=== PATIENT | male | born 1995 | race Caucasian/White ===

== ENCOUNTER 2018-03-19 23:27 | Emergency (ER) | payer SELFPAY ==
[~2018-03-19] VITALS: Ht 187.9 cm; Wt 86.2 kg
[~2018-03-19 23:27] MED LIST: BACTRIM DS 8001 TA1 PO; IBU800 MG PO; KEFLEX500 MG PO; MOTRIN600 MG PO; MOTRIN800 MG PO
[2018-03-19] MEDS ORDERED: AMOXICILLIN500 M2 PO (23:36)
== END 2018-03-19 23:50 | disposition home or self-care (01) ==
LOC: ED 23:27
DX: H66.91 Otitis media, unspecified, right ear (principal)

== ENCOUNTER 2018-09-11 07:04 | Emergency (ER) | payer SELFPAY ==
[~2018-09-11] VITALS: Ht 185.4 cm; Wt 86.2 kg
[~2018-09-11 07:04] MED LIST changes: +AMOXICILLIN500 M2 PO
== END 2018-09-11 08:10 | disposition home or self-care (01) ==
LOC: ED 07:04
DX: H60.92 Unspecified otitis externa, left ear (principal); Z79.2 Long term (current) use of antibiotics

== ENCOUNTER 2019-03-23 20:29 | Emergency (ER) | payer SELFPAY ==
[~2019-03-23] VITALS: Ht 185.4 cm; Wt 83.9 kg
[2019-03-23 20:50] LABS: BILIRUBIN NEGATIVE (NEGATIVE); BLOOD NEGATIVE (NEGATIVE); CLARITY CLEAR (CLEAR); COLOR YELLOW (YELLOW); GLUCOSE NEGATIVE (NEGATIVE); KETONE NEGATIVE (NEGATIVE); LEUKO ESTERASE TRACE (NEGATIVE); NITRITE NEGATIVE (NEGATIVE); UROBILINOGEN 0.2 E.U./dl (0.2-1.0)
[2019-03-23 20:59] LABS: BACTERIA 1+
[2019-03-23] MEDS ORDERED: AMINOPHYLLIN200 MG PO (21:22)
== END 2019-03-23 21:28 | disposition home or self-care (01) ==
LOC: ED 20:29
PROVIDERS: Physician Assistant
DX: N39.0 Urinary tract infection, site not specified (principal); F17.200 Nicotine dependence, unspecified, uncomplicated

== ENCOUNTER 2019-06-05 20:28 | Emergency (ER) | payer SELFPAY ==
[~2019-06-05] VITALS: Ht 185.4 cm; Wt 83.9 kg
[~2019-06-05 20:28] MED LIST changes: +AMINOPHYLLIN200 MG PO
[2019-06-05 20:49] LABS: BILIRUBIN NEGATIVE (NEGATIVE); BLOOD NEGATIVE (NEGATIVE); CLARITY CLEAR (CLEAR); COLOR YELLOW (YELLOW); GLUCOSE NEGATIVE (NEGATIVE); KETONE NEGATIVE (NEGATIVE); LEUKO ESTERASE TRACE (NEGATIVE); NITRITE NEGATIVE (NEGATIVE); SPECIFIC GRAVITY <= 1.005 (1.005-1.030); UROBILINOGEN 0.2 E.U./dl (0.2-1.0)
[2019-06-05] MEDS ORDERED: SEPTDS PO (21:25)
== END 2019-06-05 21:42 | disposition home or self-care (01) ==
LOC: ED 20:28
PROVIDERS: Nurse Practitioner Family
DX: R30.0 Dysuria (principal)

== ENCOUNTER 2019-06-17 13:35 | Emergency (ER) | payer SELFPAY ==
[~2019-06-17] VITALS: Ht 185.4 cm; Wt 83.9 kg
[~2019-06-17 13:35] MED LIST changes: +SEPTDS PO
[2019-06-17 13:53] LABS: BILIRUBIN NEGATIVE (NEGATIVE); BLOOD NEGATIVE (NEGATIVE); CLARITY CLEAR (CLEAR); COLOR YELLOW (YELLOW); GLUCOSE NEGATIVE (NEGATIVE); KETONE NEGATIVE (NEGATIVE); LEUKO ESTERASE NEGATIVE (NEGATIVE); NITRITE NEGATIVE (NEGATIVE); SPECIFIC GRAVITY <= 1.005 (1.005-1.030); UROBILINOGEN 0.2 E.U./dl (0.2-1.0)
[2019-06-17 14:03] LABS: EPITHELIAL CELLS 0-2
[2019-06-19 22:07] LABS: GONOCOCCUS BY NAA Negative (Negative)
== END 2019-06-17 14:21 | disposition home or self-care (01) ==
LOC: ED 13:35
PROVIDERS: Emergency Medicine
DX: R30.0 Dysuria (principal); R30.9 Painful micturition, unspecified; Z20.2 Contact with and (suspected) exposure to infections with a predominantly sexual mode of transmission; Z88.2 Allergy status to sulfonamides; Z88.1 Allergy status to other antibiotic agents

== ENCOUNTER 2019-09-13 17:43 | Emergency (ER) | payer OTHER ==
[~2019-09-13] VITALS: Ht 185.4 cm; Wt 83.9 kg
[2019-09-13 18:28] LABS: BASO % 0.6 % (0.0-1.0); EOS % 0.8 % (1.0-4.0); HEMATOCRIT 42.5 % (42.0-52.0); HEMOGLOBIN 14.1 g/dl (14.0-18.0); LYMPH # 2.1 10*3/uL (1.3-4.4); LYMPH % 41.4 % (27.0-41.0); MEAN CELL VOLUME 87.8 fl (80.0-94.0); MEAN CORPUSCULAR HGB 29.1 pg (27.0-31.0); MEAN CORPUSCULAR HGB CONC 33.2 g/dl (33.0-37.0); MEAN PLATELET VOLUME 9.4 fl (9.6-12.3); MONO # 0.4 10*3/uL (0.1-1.0); MONO % 8.5 % (3.0-9.0); NEUT # 2.4 10*3/uL (2.3-7.9); NEUT % 48.7 % (47.0-73.0); PLATELET COUNT AUTOMATED 226 10*3/uL (130-400); RED BLOOD COUNT 4.84 10*6/uL (4.50-5.90); RED CELL DISTRI WIDTH 12.2 % (0-14.5)
[2019-09-13 18:30] LABS: BILIRUBIN NEGATIVE (NEGATIVE); BLOOD NEGATIVE (NEGATIVE); CLARITY CLEAR (CLEAR); COLOR YELLOW (YELLOW); GLUCOSE NEGATIVE (NEGATIVE); KETONE NEGATIVE (NEGATIVE); LEUKO ESTERASE NEGATIVE (NEGATIVE); NITRITE NEGATIVE (NEGATIVE); UROBILINOGEN 0.2 E.U./dl (0.2-1.0)
[2019-09-13 18:44] LABS: EPITHELIAL CELLS 0-2; WBC 0-2 wbc/hpf (0-5)
[2019-09-13 18:45] LABS: ALBUMIN 4.6 gm/dl (3.1-4.5); ALKALINE PHOSPHATASE 74 U/L (45-117); BUN 12 mg/dl (7-24); CHLORIDE 105 mmol/L (98-107); CREATININE 1.03 mg/dL (0.70-1.30); POTASSIUM 4.1 mmol/L (3.5-5.1); SGOT/AST 18 IU/L (3-35); SGPT/ALT 29 U/L (12-78); SODIUM 138 mmol/L (136-145); TOTAL PROTEIN 7.6 gm/dL (6.4-8.2)
[2019-09-17 22:03] LABS: GONOCOCCUS BY NAA Negative (Negative)
== END 2019-09-13 20:17 | disposition home or self-care (01) ==
LOC: ED 17:43
PROVIDERS: Physician Assistant
DX: Z20.2 Contact with and (suspected) exposure to infections with a predominantly sexual mode of transmission (principal); M54.9 Dorsalgia, unspecified; Z79.2 Long term (current) use of antibiotics

== ENCOUNTER 2019-09-30 15:39 | Emergency (ER) | payer OTHER ==
[~2019-09-30] VITALS: Ht 185.4 cm; Wt 83.9 kg
[2019-09-30 16:14] LABS: BASO % 0.3 % (0.0-1.0); BILIRUBIN NEGATIVE (NEGATIVE); BLOOD NEGATIVE (NEGATIVE); CLARITY CLEAR (CLEAR); COLOR YELLOW (YELLOW); EOS % 0.3 % (1.0-4.0); GLUCOSE NEGATIVE (NEGATIVE); HEMATOCRIT 42.5 % (42.0-52.0); HEMOGLOBIN 14.1 g/dl (14.0-18.0); KETONE NEGATIVE (NEGATIVE); LEUKO ESTERASE NEGATIVE (NEGATIVE); LYMPH # 1.9 10*3/uL (1.3-4.4); LYMPH % 28.3 % (27.0-41.0); MEAN CELL VOLUME 86.7 fl (80.0-94.0); MEAN CORPUSCULAR HGB 28.8 pg (27.0-31.0); MEAN CORPUSCULAR HGB CONC 33.2 g/dl (33.0-37.0); MEAN PLATELET VOLUME 9.4 fl (9.6-12.3); MONO # 0.5 10*3/uL (0.1-1.0); MONO % 7.1 % (3.0-9.0); NEUT # 4.3 10*3/uL (2.3-7.9); NEUT % 63.7 % (47.0-73.0); NITRITE NEGATIVE (NEGATIVE); PLATELET COUNT AUTOMATED 251 10*3/uL (130-400); RED CELL DISTRI WIDTH 11.9 % (0-14.5); UROBILINOGEN 0.2 E.U./dl (0.2-1.0); WHITE BLOOD COUNT 6.8 10*3/uL (4.8-10.8)
[2019-09-30 16:29] LABS: ALBUMIN 4.4 gm/dl (3.1-4.5); ALKALINE PHOSPHATASE 66 U/L (45-117); BUN 16 mg/dl (7-24); CHLORIDE 106 mmol/L (98-107); CREATININE 1.32 mg/dL (0.70-1.30); POTASSIUM 3.8 mmol/L (3.5-5.1); SGOT/AST 16 IU/L (3-35); SGPT/ALT 27 U/L (12-78); SODIUM 139 mmol/L (136-145); TOTAL PROTEIN 7.4 gm/dL (6.4-8.2)
[2019-09-30] MEDS ORDERED: FLOMAX0.4 MG PO (18:11)
[2019-09-30] MEDS ORDERED: SEPTDS PO (18:11)
== END 2019-09-30 18:06 | disposition home or self-care (01) ==
LOC: ED 15:39
PROVIDERS: Nurse Practitioner Family
DX: N41.0 Acute prostatitis (principal); R33.9 Retention of urine, unspecified; N20.0 Calculus of kidney; Z79.899 Other long term (current) drug therapy

== ENCOUNTER 2019-11-25 20:20 | Emergency (ER) | payer OTHER ==
[~2019-11-25] VITALS: Ht 185.4 cm; Wt 83.9 kg
[~2019-11-25 20:20] MED LIST changes: +FLOMAX0.4 MG PO
[2019-11-25 20:55] LABS: BILIRUBIN NEGATIVE (NEGATIVE); CLARITY CLEAR (CLEAR); COLOR YELLOW (YELLOW); GLUCOSE NEGATIVE (NEGATIVE); KETONE TRACE (NEGATIVE)
[2019-11-25 20:56] LABS: BLOOD NEGATIVE (NEGATIVE); LEUKO ESTERASE NEGATIVE (NEGATIVE); NITRITE NEGATIVE (NEGATIVE); SPECIFIC GRAVITY 1.011 (1.005-1.030); UROBILINOGEN 0.2 E.U./dl (0.2-1.0)
[2019-11-25 21:09] LABS: BACTERIA TRACE; EPITHELIAL CELLS 0-2; RBC 0-2 rbc/hpf (0-2); WBC 0-2 wbc/hpf (0-5)
== END 2019-11-25 22:13 | disposition home or self-care (01) ==
LOC: ED 20:20
PROVIDERS: Emergency Medicine
DX: R30.0 Dysuria (principal); Z87.442 Personal history of urinary calculi; Z79.2 Long term (current) use of antibiotics; Z79.899 Other long term (current) drug therapy

== ENCOUNTER 2020-03-04 02:24 | Emergency (ER) | payer OTHER ==
[~2020-03-04] VITALS: Ht 185.4 cm; Wt 83.9 kg
[2020-03-04 03:35] LABS: BASO % 0.5 % (0.0-1.0); EOS % 0.5 % (1.0-4.0); LYMPH # 2.6 10*3/uL (1.3-4.4); LYMPH % 33.8 % (27.0-41.0); MEAN CELL VOLUME 86.3 fl (80.0-94.0); MEAN CORPUSCULAR HGB 28.8 pg (27.0-31.0); MEAN CORPUSCULAR HGB CONC 33.4 g/dl (33.0-37.0); MEAN PLATELET VOLUME 9.1 fl (9.6-12.3); MONO # 0.6 10*3/uL (0.1-1.0); MONO % 7.8 % (3.0-9.0); NEUT # 4.4 10*3/uL (2.3-7.9); NEUT % 57.1 % (47.0-73.0); PLATELET COUNT AUTOMATED 224 10*3/uL (130-400); RED BLOOD COUNT 4.75 10*6/uL (4.50-5.90); RED CELL DISTRI WIDTH 12.4 % (0-14.5); WHITE BLOOD COUNT 7.7 10*3/uL (4.8-10.8)
[2020-03-04 03:53] LABS: ALBUMIN 4.2 gm/dl (3.1-4.5); ALKALINE PHOSPHATASE 60 U/L (45-117); BUN 14 mg/dl (7-24); CHLORIDE 108 mmol/L (98-107); CREATININE 1.09 mg/dL (0.70-1.30); POTASSIUM 3.4 mmol/L (3.5-5.1); SGOT/AST 10 IU/L (3-35); SGPT/ALT 24 U/L (12-78); SODIUM 140 mmol/L (136-145); TOTAL PROTEIN 7.2 gm/dL (6.4-8.2)
== END 2020-03-04 06:24 | disposition home or self-care (01) ==
LOC: ED 02:24
PROVIDERS: Emergency Medicine
DX: T75.4XXA Electrocution, initial encounter (principal); K40.90 Unilateral inguinal hernia, without obstruction or gangrene, not specified as recurrent; W86.8XXA Exposure to other electric current, initial encounter; Y93.89 Activity, other specified; Y92.89 Other specified places as the place of occurrence of the external cause; Y99.8 Other external cause status

== ENCOUNTER 2020-08-29 17:24 | Emergency (ER) | payer OTHER ==
[~2020-08-29] VITALS: Ht 185.4 cm; Wt 81.6 kg
== END 2020-08-29 18:07 | disposition home or self-care (01) ==
LOC: ED 17:24
PROVIDERS: Nurse Practitioner Family
DX: Z20.2 Contact with and (suspected) exposure to infections with a predominantly sexual mode of transmission (principal)

== ENCOUNTER 2021-04-09 13:35 | Emergency (ER) | payer OTHER ==
[~2021-04-09] VITALS: Ht 1709 cm; Wt 83.9 kg
[2021-04-09] MEDS ORDERED: ZITHROMAX250 MG PO ×2 (15:06)
== END 2021-04-09 15:07 | disposition home or self-care (01) ==
LOC: ED 13:35
DX: B34.9 Viral infection, unspecified (principal); Z20.822 Contact with and (suspected) exposure to COVID-19

== ENCOUNTER 2021-05-15 17:39 | Emergency (ER) | payer OTHER ==
[~2021-05-15] VITALS: Ht 185.4 cm; Wt 83.9 kg
[~2021-05-15 17:39] MED LIST changes: +ZITHROMAX250 MG PO
[2021-05-15 18:09] LABS: BASO % 0.3 % (0.0-1.0); EOS # 0.1 10*3/uL (0.0-0.4); EOS % 1.5 % (1.0-4.0); LYMPH # 2.3 10*3/uL (1.3-4.4); LYMPH % 36.6 % (27.0-41.0); MEAN CELL VOLUME 85.7 fl (80.0-94.0); MEAN CORPUSCULAR HGB 28.5 pg (27.0-31.0); MEAN CORPUSCULAR HGB CONC 33.3 g/dl (33.0-37.0); MEAN PLATELET VOLUME 9.4 fl (9.6-12.3); MONO # 0.5 10*3/uL (0.1-1.0); MONO % 7.6 % (3.0-9.0); NEUT # 3.3 10*3/uL (2.3-7.9); NEUT % 53.8 % (47.0-73.0); PLATELET COUNT AUTOMATED 246 10*3/uL (130-400); RED BLOOD COUNT 5.02 10*6/uL (4.50-5.90); RED CELL DISTRI WIDTH 12.4 % (0-14.5); WHITE BLOOD COUNT 6.2 10*3/uL (4.8-10.8)
[2021-05-15 18:26] LABS: BILIRUBIN Negative (Negative); BLOOD Negative (Negative); CLARITY Clear (Clear); COLOR Yellow (Yellow); GLUCOSE Negative (Negative); KETONE Negative (Negative); LEUKO ESTERASE Negative (Negative); NITRITE Negative (Negative); SPECIFIC GRAVITY 1.015 (1.001-1.030); UROBILINOGEN 0.2 E.U./dl (0.0-1.0)
[2021-05-15 18:26] LABS: ALBUMIN 4.1 gm/dl (3.1-4.5); ALKALINE PHOSPHATASE 64 U/L (45-117); BUN 10 mg/dl (7-24); CHLORIDE 106 mmol/L (98-107); CREATININE 1.09 mg/dL (0.70-1.30); LIPASE 58 U/L (73-393); SGOT/AST 26 IU/L (3-35); SGPT/ALT 27 U/L (12-78); SODIUM 139 mmol/L (136-145); TOTAL PROTEIN 7.3 gm/dL (6.4-8.2)
[2021-05-15 18:28] LABS: POTASSIUM 4.2 mmol/L (3.5-5.1)
[2021-05-15 18:34] LABS: RBC 0-2 rbc/hpf (0-2)
[2021-05-15 18:35] LABS: EPITHELIAL CELLS 0-2; WBC 0-2 wbc/hpf (0-5)
[2021-05-15] MEDS ORDERED: KETOROLAC10 MG PO (21:00)
== END 2021-05-15 21:05 | disposition home or self-care (01) ==
LOC: ED 17:39
PROVIDERS: Physician Assistant
DX: N23 Unspecified renal colic (principal); Z87.442 Personal history of urinary calculi

== ENCOUNTER 2021-11-15 14:24 | Emergency (ER) | payer OTHER ==
[~2021-11-15] VITALS: Wt 81.6 kg
[~2021-11-15 14:24] MED LIST changes: +KETOROLAC10 MG PO
[2021-11-15 14:54] LABS: BILIRUBIN Negative (Negative); BLOOD Negative (Negative); CLARITY Clear (Clear); COLOR Yellow (Yellow); GLUCOSE Negative (Negative); KETONE Negative (Negative); LEUKO ESTERASE Negative (Negative); NITRITE Negative (Negative); PH 7.5 (4.5-8.0); UROBILINOGEN 0.2 E.U./dl (0.0-1.0)
[2021-11-15 15:04] LABS: BACTERIA TRACE; MUCOUS 1+; WBC 0-2 wbc/hpf (0-5)
[2021-11-15] MEDS ORDERED: VIBRAMYCIN100 MG PO (16:10)
== END 2021-11-15 16:21 | disposition home or self-care (01) ==
LOC: ED 14:24
PROVIDERS: Emergency Medicine
DX: R30.0 Dysuria (principal); Z20.2 Contact with and (suspected) exposure to infections with a predominantly sexual mode of transmission

== ENCOUNTER 2023-01-28 21:49 | Emergency (ER) | payer OTHER ==
[~2023-01-28] VITALS: Ht 185.4 cm; Wt 83.9 kg
[~2023-01-28 21:49] MED LIST changes: +VIBRAMYCIN100 MG PO
[2023-01-28 22:06] LABS: BILIRUBIN Negative (Negative); BLOOD Negative (Negative); CLARITY Cloudy (Clear); COLOR Yellow (Yellow); GLUCOSE Negative (Negative); KETONE Negative (Negative); LEUKO ESTERASE Negative (Negative); NITRITE Negative (Negative)
[2023-01-28] MEDS ORDERED: KETOROLAC10 MG PO (22:14)
[2023-01-28] MEDS ORDERED: FLOMAX0.4 MG PO (22:14)
[2023-01-28 22:24] LABS: BACTERIA 1+; RBC 0-2 rbc/hpf (0-2)
== END 2023-01-28 23:04 | disposition home or self-care (01) ==
LOC: ED 21:49
PROVIDERS: Internal Medicine
DX: R30.0 Dysuria (principal)

== ENCOUNTER 2025-09-08 02:15 | Emergency (ER) | payer OTHER ==
[~2025-09-08] VITALS: Ht 182.8 cm; Wt 81.6 kg
[2025-09-08 02:33] LABS: BILIRUBIN Negative (Negative); BLOOD 3+ (Negative); CLARITY Clear (Clear); COLOR Yellow (Yellow); KETONE Negative (Negative); LEUKO ESTERASE Trace (Negative); NITRITE Negative (Negative); PH 5.5 (4.5-8.0); SPECIFIC GRAVITY 1.025 (1.001-1.030); UROBILINOGEN 1.0 E.U./dl (0.0-1.0)
[2025-09-08 02:42] LABS: BACTERIA 1+; CALCIUM OXALATE CRYSTALS Trace; RBC 51-100 rbc/hpf (0-2)
[2025-09-08] MEDS ORDERED: SODIUM CHLORIDE 0.9% 1,000 ML IV ONE (03:05)
[2025-09-08] MEDS ORDERED: Ondansetron Hydrochloride 4 MG/2 ML VIAL IV ONE (03:05)
[2025-09-08 03:12] LABS: BASO # 0.0 10*3/uL (0.0-0.1); BASO % 0.4 % (0.0-1.0); EOS # 0.1 10*3/uL (0.0-0.4); EOS % 1.2 % (1.0-4.0); MEAN CELL VOLUME 85.6 fl (80.0-94.0); MEAN CORPUSCULAR HGB 28.7 pg (27.0-31.0); MEAN PLATELET VOLUME 8.8 fl (9.6-12.3); MONO # 0.6 10*3/uL (0.1-1.0); MONO % 7.9 % (3.0-9.0); NEUT # 4.7 10*3/uL (2.3-7.9); NEUT % 64.2 % (47.0-73.0); NUCLEATED RED BLOOD CELL 0.0 % (0.0-0.0); NUCLEATED RED BLOOD CELL 0.0 10*3/uL (0.0-0.0); PLATELET COUNT AUTOMATED 248 10*3/uL (130-400); RED CELL DISTRI WIDTH 12.0 % (0-14.5)
[2025-09-08 03:33] LABS: BUN 12 mg/dl (9-23)
[2025-09-08] MEDS ORDERED: TAMSULOSIN HCL0.4 MG PO (06:02)
[2025-09-08] MEDS ORDERED: Ondansetron4 MG PO (06:05)
[2025-09-08] MEDS ORDERED: IBU800 M2 PO (06:06)
== END 2025-09-08 06:05 | disposition home or self-care (01) ==
LOC: ED 02:15
PROVIDERS: Student in an Organized Health Care Education/Training Program
DX: N20.0 Calculus of kidney (principal); Z87.442 Personal history of urinary calculi